=== PATIENT | female | born 2000 | race Caucasian/White ===

== ENCOUNTER 2020-07-28 17:24 | Emergency (ER) | payer OTHER, SELFPAY ==
[~2020-07-28] VITALS: Ht 165.1 cm; Wt 90.7 kg
[2020-07-28 17:40] VITALS: BP 127/86; Ht 165.1 cm; Wt 90.7 kg
== END 2020-07-28 19:44 | disposition home or self-care (01) ==
LOC: ED 17:24
DX: U07.1 COVID-19 (principal); E66.9 Obesity, unspecified; Z68.33 Body mass index [BMI] 33.0-33.9, adult
CPT/HCPCS: U0003